=== PATIENT | male | born 1980 ===

== ENCOUNTER 2020-12-13 15:01 | Inpatient (IN) | payer OTHER ==
[~2020-12-13] VITALS: Ht 162.6 cm; Wt 80.4 kg
[2020-12-13 18:13] LABS: Basophils # (auto) 0.1 10 ^3/uL (0-0.2); Basophils % (auto) 0.5 % (0.0-2.0); Eosinophils # (auto) 0 10 ^3/uL (0-0.8); Eosinophils % (auto) 0.2 % (0.0-7.0); Hematocrit 47.1 % (41.0-53.0); Hemoglobin 15.8 g/dL (13.5-17.5); Lymphocytes % (auto) 20.7 % (10.0-50.0); Mean Corpuscular Hemoglobin 26.5 pg (28.0-32.0); Mean Corpuscular Hgb Conc. 33.6 g/dL (32.0-36.0); Mean Corpuscular Volume 78.9 fL (80.0-100.0); Monocytes # (auto) 0.4 10 ^3/uL (0-1.3); Monocytes % (auto) 4.2 % (0.0-12.0); Neutrophils # (auto) 7.1 10 ^3/uL (1.6-8.6); Neutrophils % (auto) 74.4 % (37.0-80.0); Nucleated Red Blood Cells % 0.1 %; Red Blood Cells 5.98 10^6/uL (4.5-5.90); Red Cell Distribution Width 14.9 % (11.8-14.3); White Blood Cell 9.6 10^3/uL (4.4-10.8)
[2020-12-13 18:31] LABS: Albumin 4.1 g/dL (3.4-5.0); Calcium 9.4 mg/dL (8.5-10.1)
[2020-12-13 18:35] LABS: BUN/Creatinine Ratio 10.7; Bilirubin, Total 0.4 mg/dL (0.2-1.0); Total Protein 8.8 g/dL (6.4-8.2)
[2020-12-14] MEDS ORDERED: VANCOMYCIN PER PHARMACY 0 MG IV SCH (11:45)
[2020-12-14] MEDS ORDERED: HYDROcodone-ACET 5/325MG TAB PO PRN (11:45)
[2020-12-14] MEDS ORDERED: NITROGLYCERIN 0.4 MG SL TAB SL PRN (11:45)
[2020-12-14] MEDS ORDERED: ONDANSETRON HCL 4 MG/2 ML VIAL IV PRN (11:45)
[2020-12-14] MEDS ORDERED: MORPHINE SULFATE INJECTION 2 MG/ML SYRG IV PRN (11:45)
[2020-12-14] MEDS ORDERED: VANCOMYCIN 1GM/250ML 250 ML IV ONE (13:30)
[2020-12-14] MEDS: PIPERACILLIN-TAZOB 3.375GM 100 ML IV SCH (21:40)
[2020-12-14] MEDS: PANTOPRAZOLE 40 MG TAB PO SCH (21:40)
[2020-12-14 22:00] VITALS: BP 117/61
[2020-12-15] MEDS ORDERED: NORPTMEDS CO (04:12)
[2020-12-15] MEDS: PIPERACILLIN-TAZOB 3.375GM 100 ML IV SCH (04:24)
[2020-12-15] MEDS ORDERED: VANCOMYCIN 1GM/250ML 250 ML IV SCH (05:00)
[2020-12-15 05:01] VITALS: BP 103/67
[2020-12-15 09:00] VITALS: BP 103/60
[2020-12-15] MEDS: PANTOPRAZOLE 40 MG TAB PO SCH (09:13)
[2020-12-15] MEDS ORDERED: SULFAMETHOX W/TRIMETH(800/160MG) DS TAB PO SCH (10:00)
[2020-12-15] MEDS ORDERED: ENOXAPARIN SOD 40 MG/0.4 ML SYRINGE SC SCH (10:00)
[2020-12-15 13:18] VITALS: BP 129/64
== END 2020-12-15 13:24 | DRG 603 ==
LOC: ER 15:01 → EEVIPCON 15:01 → OVERFLOW 12-14 11:37 → WEST WING 12-14 16:41
PROVIDERS: ADMIT Specialist; ATTEND Specialist
DX: L02.31 Cutaneous abscess of buttock (principal); Z20.822 Contact with and (suspected) exposure to COVID-19
CPT/HCPCS: 36415; 72192; 80053; 82565; 83605; 85025; 87040; 87070; 87077; 87081; 87186; 87205; 87426; 93926; 96365; G0378; J2543